=== PATIENT | female | born 1980 | race African-American/Black ===

== ENCOUNTER → 2017-02-11 | Outpatient (CLI) | payer BC ==
[~2017-02-11] MED LIST: ACCUNEB SO1.25 MG/1 INH; CYCLOBENZAPRINE5 MG PO; DULERA 100 MCG/13 GM INH; LEVAQUIN 500 M500 M2 PO; NAPROSYN500 MG PO; NORFLEX100 MG PO; PREDNISONE 10 M10 MG PO; SYMBICORT160 MCG/4. INH; TESSALON PERLE100 MG PO; TRAMADOL 50 MG50 MG PO
== END ==
LOC: MRI 08:55
DX: M25.512 Pain in left shoulder (principal)

== ENCOUNTER 2019-12-21 14:00 | Emergency (ER) | payer BC ==
[~2019-12-21] VITALS: Ht 175.3 cm; Wt 92.5 kg
[2019-12-21] MEDS ORDERED: MOBIC7.5 MG PO (14:38)
[2019-12-21 14:59] LABS: BASOPHILS 1.2 % (0.0-2.0); HEMATOCRIT 37.5 % (37.0-47.0); HEMOGLOBIN 12.8 gm/dL (12.0-15.0); LYMPHOCYTES 33.9 % (24.0-44.0); MCH 29.6 pg (26.0-34.0); MCHC 34.1 g/dL (28.0-37.0); MONOCYTES 7.6 % (1.0-8.0); PLATELET COUNT 297 thou/uL (150-400); POLYS 55.3 % (36.0-66.0); RBC 4.31 mil/uL (4.20-5.00); RDW 13.9 % (10.5-14.5); WBC 7.2 thou/uL (4.0-11.0)
[2019-12-21 15:09] LABS: CALCIUM 9.2 mg/dL (8.5-10.1); CREATININE 1.2 mg/dL (0.6-1.0); POTASSIUM 3.5 mmol/L (3.5-5.1)
[2019-12-21 15:13] LABS: URINE BILIRUBIN NEGATIVE (Negative); URINE BLOOD NEGATIVE (Negative); URINE CLARITY CLEAR; URINE COLOR YELLOW; URINE GLUCOSE-RANDOM* NEGATIVE (Negative); URINE KETONES NEGATIVE (Negative); URINE LEUKOCYTES-REFLEX NEGATIVE (Negative); URINE NITRITE-REFLEX NEGATIVE (Negative); URINE PROTEIN (DIPSTICK) NEGATIVE (Negative); URINE UROBILINOGEN 0.2 E.U./dl (0.2-1.0)
[2019-12-21 15:15] LABS: ALBUMIN 4.3 g/dL (3.4-5.0); TOTAL BILIRUBIN 0.4 mg/dL (0.2-1.0); TOTAL PROTEIN 8.1 g/dL (6.4-8.2)
[2019-12-21] MEDS ORDERED: NORCO 5-325 TA1 EAC2 PO (18:54)
[2019-12-21] MEDS ORDERED: MIRALAX119 GM PO (18:54)
[2019-12-21 19:12] VITALS: BP 136/98
== END 2019-12-21 19:13 | disposition home or self-care (01) ==
LOC: ER 14:00
PROVIDERS: Physician Assistant
DX: N83.201 Unspecified ovarian cyst, right side (principal); K59.00 Constipation, unspecified; Z90.710 Acquired absence of both cervix and uterus; Z79.899 Other long term (current) drug therapy; Z91.013 Allergy to seafood